=== PATIENT | male | born 1995 | race Caucasian/White ===

== ENCOUNTER 2020-06-30 07:38 | Emergency (ER) | payer OTHER, SELFPAY ==
[~2020-06-30] VITALS: Ht 175.3 cm; Wt 79.8 kg
[2020-06-30 07:41] VITALS: Ht 175.3 cm; Wt 79.8 kg
[2020-06-30 08:20] VITALS: BP 135/83
== END 2020-06-30 08:20 | disposition home or self-care (01) ==
LOC: ED 07:38
DX: B34.9 Viral infection, unspecified (principal); M79.10 Myalgia, unspecified site; R50.9 Fever, unspecified; R07.0 Pain in throat; Z20.828 Contact with and (suspected) exposure to other viral communicable diseases
CPT/HCPCS: U0003-CS